=== PATIENT | female | born 1990 | race Caucasian/White ===

== ENCOUNTER 2017-06-24 13:26 | Emergency (ER) | payer OTHER ==
[~2017-06-24] VITALS: Ht 165.1 cm; Wt 77.3 kg
[~2017-06-24 13:26] MED LIST: BUPR1FIL3 SL; GABA-500 PO; IBUP-1827 PO; NAPR500T PO; SULF1TAB7 PO; VALA500T2 PO
[2017-06-24 14:08] VITALS: BP 112/69; PULSE 99; RESP 15; O2SAT 100
--- NOTE | 2017-06-24 15:14 | ED.REPORT ---
HPI-Rash / Abscess Date of Service Jun 24, 2017 ED Provider: Tyler Armas MD Patient is a 27 year old female with a history of IV drug use who presents to the ED complaining of an area of erythema on her right thigh onset yesterday. Associated symptoms include right thigh pain and swelling. The patient states that she has had an episode of emesis but thinks this was related to her drug use. She denies fevers or chills. Patient reports that she has been in care home for the past week. She last used heroin this morning. Nursing Notes Stated Complaint: ABSCESS Chief Complaint: Skin Rash/Abscess Nursing Notes Reviewed: Yes Allergies: Coded Allergies: doxycycline (Verified Adverse Reaction, Unknown, Nausea, 06/24/17) Scheduled Buprenorphine HCl/Naloxone HCl (Suboxone 8 mg-2 mg Sl Film) 1 Each Film 1 EACH SL BID Cephalexin (Keflex) 500 Mg Capsule 500 MG PO QID Gabapentin (Gabapentin) 100 Mg Capsule 100 MG PO TID Sulfamethoxazole/Trimeth 800-160 mg (Bactrim DS) 1 Each Tablet 1 TABLET PO BID Sulfamethoxazole/Trimeth 800-160 mg (Bactrim DS) 1 Each Tablet 1 TABLET PO BID Valacyclovir HCl (Valtrex) 500 Mg Tablet 500 MG PO DAILY Scheduled PRN Ibuprofen (Ibuprofen) 600 Mg Tablet 600 MG PO QID PRN PRN For Pain Naproxen (Naprosyn) 500 Mg Tablet 500 MG PO BID PRN PRN For Pain General Time Seen by MD: 15:14 Chief Complaint Abscess Hx Obtained From: Patient Arrived By: Walk-in Onset Occurred: Yesterday Symptom Duration: Since onset Location: : Lower extremity Quality: Painful Severity: Current: Moderate Recent Healthcare: No recent doctor visit Similar Sx Previous: Yes Past Medical History Past Medical History Notes: recent miscarriage 08/21/16 Past Medical History Healthy Past Surgical History Denies Smoking History Current Every Day Smoker Social History Alcohol Use: "Social" Drug Use: IV drugs, Meth, Other Ambulatory Status Independent Review of Systems Review of Systems Note: +area of erythema on right thigh Constitutional: Denies: Chills, Fever Respiratory: Denies: Non-productive cough, Shortness of breath GI: Reports: Vomiting, Denies: Abdominal pain, Nausea Musculoskeletal: Reports: Extremity pain Skin: Reports Swelling, Denies Itching, Denies Rash Complete sys rev & neg: except as marked. Physical Exam Initial Vital Signs Vital Signs (First) Date Time Temp Pulse Resp B/P Pulse Ox O2 Delivery O2 Flow Rate FiO2 06/24/17 14:08 37.3 99 15 112/69 100 Room Air Initial VS: Reviewed General/Constitutional: Awake, Alert Skin: Warm, Dry Head / Eyes: Atraumatic, Normocephalic, PERRL, EOMI Respiratory / Chest: Atraumatic, Breath sounds NL, Breath sounds = bilat, No respiratory distress Cardiovascular: Heart rate NL, Regular rhythm, Heart sounds NL Upper Extremity / MS: Atraumatic, Full range of motion 8cm x 8cm area of erythema and firm induration on the right lateral thigh not actively draining no fluctuance no clear abscess pocket for draining Neurologic: Oriented X3, Speech NL Abdomen: Atraumatic, Soft, Non-tender Psychiatric: Affect NL, Mood NL Interpretation & Diagnostics Interpretation & Diagnostics: bedside ultrasound: showed cobblestoning appearance at the subcutaneous tissue no evidence of an abscess pocket amenable to drainage Re-Eval/Medical Decision Med Decision/Clinical Course Patient is a 27 year old female with a history of IV drug use who presents to the ED complaining of an area of erythema on her right thigh onset yesterday. Associated symptoms include right thigh pain and swelling. Here in the emergency department the patient is afebrile, hemodynamically stable and in no apparent distress. Examination reveals a patch of firm, cellulitic appearing skin without any fluctuance or obvious abscess. Bedside Ultrasound: cobblestoning in appearance in the subcutaneous tissue. No evidence of an abscess pocket amenable to drainage. At this time, patient is nontoxic in appearance and afebrile. She has a patch of cellulitis with no abscess amenable to incision and drainage. She has been prescribed Bactrim/Keflex and advised to take as directed. She is advised to return immediately for increased swelling, increased erythema/pain or any other new/concerning symptoms. I explained to the patient that she may develop abscess regardless of taking antibiotics and that should her symptoms fail to improve it is important to come back and be reevaluated. Prior to discharge follow-up and return precautions were reviewed in detail with the patient who verbalized understanding and agreement with the plan. The patient was discharged in stable condition. Re-Evaluation/Progress #1: Time of Eval: 15:15 Re-Evaluation/Progress Note: Plan for bedside ultrasound Re-Evaluation/Progress #2: Time of Eval: 15:29 Re-Evaluation/Progress Note: Discussed US results and plan for discharge. Patient understands and agrees to plan. All questions were addressed. Counseled Regarding: Diagnosis, Need for follow-up, When/why to return to ED Discharge & Departure Impression: Primary Impression: Cellulitis Site of cellulitis: extremity Site of cellulitis of extremity: lower extremity Laterality: right Qualified Code: L03.115 - Cellulitis of right lower limb Additional Impression: IV drug abuse Disposition: Home Discharge Condition All VS Reviewed: Yes Condition: Stable Patient Instructions: Cellulitis (ED) Additional Instructions: Thank you for seeking care at the emergency room. It is difficult for us to make definitive diagnoses in the ED but we believe that you have cellulitis. Our primary goal today in the Emergency Department was to evaluate you for any life-threatening conditions. Your evaluation was reassuring. You will be discharged with a prescription for Bactrim and Keflex. Take the full course. You should follow-up with your primary doctor in the next week. There is an attachment for Terrlel Herrera. Call today to schedule a follow up appointment regarding Suboxone treatment. You must be heroin free for 24 hours to start your first dose of Suboxone. You should return to the Emergency Department immediately if you develop fever, spreading redness, increasing pain, swelling, pus drainage or any other concerning signs or symptoms. Thank you for letting us partake in your care today. Referrals: TERRELL Clifford Attestation Portions of this note were transcribed by Caro Terrell. I, Dr. Armas personally performed the history, physical exam and medical decision-making; I reviewed and confirmed the accuracy of the information in the transcribed note. Signed by: Darrin Muse, 06/24/17 copies to: Tyler Melchor MD Jun 24, 2017 15:14 Tori Terrell Jun 24, 2017 15:24
[2017-06-24] MEDS ORDERED: CEPH-512 PO (15:32)
[2017-06-24] MEDS ORDERED: SULF1TAB7 PO (15:32)
== END 2017-06-24 15:39 | disposition home or self-care (01) ==
LOC: SED 13:28
DX: L03.115 Cellulitis of right lower limb (principal); F19.10 Other psychoactive substance abuse, uncomplicated; F17.200 Nicotine dependence, unspecified, uncomplicated